=== PATIENT | female | born 1950 | race Caucasian/White ===

== ENCOUNTER → 2016-12-12 | Outpatient (CLI) | payer MEDICARE, OTHER | END | disposition home or self-care (01) | LOC: PTH.S 12-11 14:00 | DX: R19.7 Diarrhea, unspecified (principal) ==

== ENCOUNTER → 2017-01-20 | Outpatient (CLI) | payer MEDICARE, OTHER | END | disposition home or self-care (01) | LOC: RAD.S 13:51 | DX: R22.2 Localized swelling, mass and lump, trunk (principal); I10 Essential (primary) hypertension; Z85.3 Personal history of malignant neoplasm of breast ==